=== PATIENT | female | born 1955 | race Caucasian/White ===

== ENCOUNTER → 2019-06-23 | Outpatient (CLI) | payer MEDICAID ==
[2019-06-23 08:56] VITALS: BP 161/96; PULSE 82; RESP 18; TEMP 98.2
--- NOTE | 2019-06-23 09:35 | P.GSHP ---
History of Present Illness H&P Date: 06/23/19 Chief Complaint: Left breast fullness under breast Josie is a 63-year-old white female who underwent a bilateral screening mammogram at the [facility] on . This was felt to be incomplete and additional evaluation via ultrasound of the left breast at the level of palpable abnormality was recommended. The mammogram itself did not show any suspicious spiculated a lobulated masses are clustered calcifications. There was no architectural distortion or other secondary signs of malignancy. The patient underwent a left breast ultrasound which was negative no solid or cystic lesion was noted. This was felt to be a BIRADS 1. The patient comes for evaluation secondary to the fullness in the left breast. The patient states that she noted a palpable mass in her left breast approximately March. She had been coughing and was feeling over her ribs when she noted the fullness at that point. She does not think there is been any change in size. It is not painful. She is not sure if this is asymmetric from the contralateral side. A chest x-ray was obtained on . This did not show any acute pulmonary process. She has not had any recent trauma or infection in the breast. She drinks at least a 20 ounces of soda per day. She is a former smoker she stopped in 2015. She is not exposed to secondhand smoke. She does not eat large quantities of chocolate. She does not take any hormone products. She is seen in consultation for Dr. Vinicio Lyn. Family History: father: of [place] at 50 paternal cousin: breast cancer in 40's, form this Hormonal History: menarche: 11 , 1 miscarriage; breast fed: yes, first born at 22 menopause: 49 BCP: 5 years hormones: none Surgical history: 1. Tonsillectomy 2. D&C 2 Medical history: anxiety GERD Social History: former smoker: stopped in 2015 alcohol: none drugs: none - Constitutional Constitutional: Reports sweats - EENT Eyes: denies blurred vision, denies pain Ears: deny: decreased hearing, tinnitus Ears, nose, mouth and throat: Denies headache, Denies sore throat - Breasts Breasts: bilateral: as per HPI - Cardiovascular Cardiovascular: Denies chest pain, Denies shortness of breath - Respiratory Comment: former smoker - Gastrointestinal Gastrointestinal: Denies abdominal pain, Denies diarrhea, Denies nausea, Denies vomiting - Genitourinary (Female) Genitourinary: Denies dysuria, Denies hematuria - Menstruation Menstruation: Reports postmenopausal - Musculoskeletal Musculoskeletal: Denies myalgias - Integumentary Integumentary: Denies pruritus, Denies rash - Neurological Neurological: Denies numbness, Denies weakness - Psychiatric Psychiatric: Reports anxiety, Denies depression - Endocrine Endocrine: Denies fatigue, Denies weight change - Hematologic/Lymphatic Hematologic/Lymphatic: Reports as per HPI - Allergic/Immunologic Allergic/Immunologic: Reports seasonal allergies Past Medical History History of Any Multi-Drug Resistant Organisms: None Reported Smoking Status: Former smoker Medications and Allergies Home Medications Medication Instructions Recorded Confirmed Type Diazepam 2 mg PO Q8HR PRN 06/23/19 06/23/19 History Famotidine [Pepcid] 20 mg PO DAILY 06/23/19 06/23/19 History Oxymetazoline HCl [Vicks Sinex] 1 spray EA NOSTRIL DAILY PRN 06/23/19 06/23/19 History Allergies Allergy/AdvReac Type Severity Reaction Status Date / Time No Known Allergies Allergy Unverified 06/23/19 08:59 Surgical - Exam Vital Signs Temp Pulse Resp BP Pulse Ox 98.2 F 82 18 161/96 98 06/23/19 08:49 06/23/19 08:49 06/23/19 08:49 06/23/19 08:49 06/23/19 08:49 BMI 31.6 - General well developed, well nourished, no distress - Eyes normal ocular movement - ENT no hearing loss, no congestion - Neck no masses, trachea midline - Respiratory normal expansion, normal respiratory effort, clear to auscultation - Cardiovascular Rhythm: regular Heart Sounds: normal: S1, S2 - Abdomen Abdomen: soft, non tender, bowel sounds, no guarding, no rigid, no rebound - Integumentary normal turgor - Neurologic no disoriented, no combative - Musculoskeletal normal gait - Psychiatric oriented to time, oriented to person, oriented to place, speech is normal, memory intact breast exam: BRA 42D inspection: no nipple inversion, grade 3 ptosis palpation: Breasts: Multiple positional exam no dominant masses or nodules of concern, fibrocystic changes Right axilla: No adenopathy of concern Left breast: Multiple positional exam fibrocystic changes, at the 7 o'clock position in the lower inner quadrant. There is an area of palpable fullness approximately 2.5 cm x 1.5 cm this appears soft and is most likely a lipoma Left axilla: No adenopathy of concern Results Mammogram and ultrasound results reviewed, chest x-ray results reviewed Assessment and Plan Assessment: Impression: 1. Left breast fullness 7 o'clock position lower inner quadrant 2. Radiographic findings benign 3. Anxiety Plan: 1. FNA of area of fullness in the left breast suspect this is most likely a lipoma 2. Patient must be covid-19 tested prior to the FNA this will be scheduled for the near future I had a discussion with Josie regarding the fullness in the left breast. I suspect this represents a lipoma. We have discussed doing an FNA of this area to confirm there is nothing atypical here. If this comes back consistent with a lipoma we will most likely watch the area and monitor it. If it does not grow and is not bothering her and we will follow this conservatively. DR. Lyn encounter 30 minutes > 50% of time spent in planning and counselling Time with Patient: Greater than 30
--- NOTE | 2019-06-23 11:18 | P.PCN ---
Date of Procedure: 06/23/19 Preoperative Diagnosis: 7:00 fullness in the left breast lower inner area/rule out lipoma Postoperative Diagnosis: Same Procedure(s) Performed: FNA left breast Surgeon: Abby Stark Pathology: other (Breast tissue) Condition: stable Disposition: same day Indications for Procedure: fullness left breast lower inner quadrant Operative Findings: Fibrofatty tissue Description of Procedure: The area of the left breast was prepped in a sterile fashion using alcohol. A 22-gauge needle on a 10 mL syringe was inserted into the area of concern. Negative suction was applied. The several passes were made in tissue was obtained. The tissue was prepped and sent for cytology. The patient tolerated the procedure in stable condition. She will follow next week for results. The patient states that as long as the cytology is not atypical realizing that I cannot tell her with 100% certainty what this is she would prefer to wait for 3 months then to have the area excised. This is most likely consistent with a lipoma if it increases in size if it becomes painful if she has any concerns she will call us sooner otherwise she will follow up in 3 months. If cytology is atypical we will recommend excision at this time.
== END | disposition home or self-care (01) ==
LOC: WWCWWP 08:41
PROVIDERS: ATTEND Surgery
DX: N63.20 Unspecified lump in the left breast, unspecified quadrant (principal); Z11.59 Encounter for screening for other viral diseases
CPT/HCPCS: 87635; 88173

== ENCOUNTER 2019-08-01 06:31 | Day surgery (SDC) | payer MEDICAID ==
[2019-07-26 14:40] VITALS: BMI 29.9
[~2019-08-01 06:31] MED LIST: HYDROmorphone 0.5 MG/0.5 ML SYRINGE IVP PRN; LACTATED RINGERS 1,000 ML IV SCH; fentaNYL (PF) 50 MCG/ML 2 ML AMP IV PRN
[2019-08-01] MEDS ORDERED: ONDANSETRON 4 MG/2 ML VIAL ONE (07:05)
[2019-08-01] MEDS ORDERED: HEPARIN SODIUM,PORCINE 5,000 UNIT/ML 1 ML VIAL ONE (07:05)
[2019-08-01] MEDS: HEPARIN SODIUM,PORCINE 5,000 UNIT/ML 1 ML VIAL SQ ONE ×2 (07:26→07:29)
[2019-08-01] MEDS: ONDANSETRON 4 MG/2 ML VIAL IVP ONE ×2 (07:26→07:29)
[2019-08-01] MEDS ORDERED: MIDAZOLAM 2 MG/2 ML VIAL ONE (09:01)
[2019-08-01] MEDS ORDERED: fentaNYL (PF) 50 MCG/ML 2 ML AMP ONE (09:01)
[2019-08-01] MEDS ORDERED: PROPOFOL 10 MG/ML 20 ML VIAL IV ONE (09:01)
[2019-08-01] MEDS ORDERED: SUCCINYLCHOLINE CHLORIDE 100 MG/5 ML SYR IV ONE (09:01)
[2019-08-01] MEDS ORDERED: LIDOCAINE 1% INJ 10MG/ML (20 ML MDV) ONE (09:01)
--- NOTE | 2019-08-01 09:44 | P.PCN ---
Date of Procedure: 08/01/19 Preoperative Diagnosis: Mass left breast Postoperative Diagnosis: Same Procedure(s) Performed: Excisional biopsy mass left breast Anesthesia: LUCIANO Surgeon: Abby Stark Estimated Blood Loss (ml): 3 IV fluids (ml): 400 Pathology: other (breast tissue/ ? lipoma) Condition: stable Disposition: same day Indications for Procedure: Palpable mass, FNA nondiagnostic Operative Findings: Mass left breast lower inner quadrant, at 7:00 Description of Procedure: Following induction of anesthesia the left breast was prepped and draped in a sterile fashion. An incision was made over the palpable abnormality. The area was excised. The area was approximately 3 cm x 2 cm. Dissection was down to the muscle of the chest wall. After assured that hemostasis was obtained the wound was well irrigated. The deep tissues were closed using 3-0 Vicryl suture. The skin was closed using a 4-0 Monocryl. The lesion appeared to be consistent with a lipoma. The lesion was painted for orientation and sent to pathology. The patient tolerated the procedure in stable condition. All instrument and sponge counts were correct at the end of the case.
[2019-08-01 09:54] VITALS: TEMP 97.1
[2019-08-01 10:50] VITALS: RESP 18
[2019-08-01 11:10] VITALS: BP 144/78; PULSE 67
== END 2019-08-01 11:20 | disposition home or self-care (01) ==
LOC: OR 06:31
PROVIDERS: ATTEND Surgery
DX: N60.12 Diffuse cystic mastopathy of left breast (principal); N60.22 Fibroadenosis of left breast; N64.1 Fat necrosis of breast; K21.9 Gastro-esophageal reflux disease without esophagitis; Z79.899 Other long term (current) drug therapy; Z98.890 Other specified postprocedural states
CPT/HCPCS: 88305; 19120; J2250; J1644; J0690; J2405; J2001; J3010; J0330; J2704; 88307

== ENCOUNTER → 2019-08-10 | Outpatient (CLI) | payer MEDICAID ==
[2019-08-10 09:48] VITALS: BP 172/92; PULSE 82; RESP 16; TEMP 98.2
--- NOTE | 2019-08-10 10:01 | P.PN ---
Subjective Progress Note Date: 08/10/19 Principal diagnosis: Fibrocystic breast disease Josie is a 64-year-old white female status post excisional biopsy left breast on 620 320. Pathology revealed fibrocystic fibrocystic spectrum lesion with focal sclerosing adenosis showing intraductal mineralization's and focal fat necrosis. She has had no complaints postprocedure. Objective - Vital Signs Vital signs: Vital Signs Temp 98.2 F 08/10/19 09:45 Pulse 82 08/10/19 09:45 Resp 16 08/10/19 09:45 BP 172/92 08/10/19 09:45 Pulse Ox 96 08/10/19 09:45 Intake & Output 08/09/19 08/10/19 08/10/19 18:59 06:59 18:59 Weight 81.647 kg - Exam BMI 30 - Constitutional General appearance: Present: average body habitus - EENT Eyes: Present: EOMI ENT: Present: hearing grossly normal - Neck Neck: Present: normal ROM - Respiratory Respiratory: bilateral: CTA - Cardiovascular Rhythm: regular Heart sounds: normal: S1, S2 - Integumentary Integumentary Comment(s): Incision left breast: Clean and dry no evidence of infection or hematoma - Musculoskeletal Musculoskeletal: Present: gait normal - Psychiatric Psychiatric: Present: A&O x's 3, appropriate affect, intact judgment & insight Assessment and Plan Assessment: Depression: 1. Patient status post open left breast excisional biopsy, pathology benign Plan: 1. Repeat left breast mammogram in 6 months with a physician exam at that time CC: Dr. Lyn
== END | disposition home or self-care (01) ==
LOC: WWCWWP 09:37
PROVIDERS: ATTEND Surgery
DX: Z53.9 Procedure and treatment not carried out, unspecified reason (principal)

== ENCOUNTER → 2020-01-31 | Outpatient (CLI) | payer MEDICAID ==
--- NOTE | 2020-01-31 11:30 | MM ---
Reason for exam: follow-up at short interval from prior study. Last mammogram was performed 10 months ago. History: Patient is postmenopausal. Benign excisional biopsy of the left breast, July 2019. Physical Findings: Nurse did not find any significant physical abnormalities on exam. MG 3D Diag Mammo W/Cad LT CC and MLO view(s) were taken of the left breast. Prior study comparison: April 04, 2019, mammogram. The breast tissue is heterogeneously dense. This may lower the sensitivity of mammography. There is no discrete abnormality including area of concern. These results were verbally communicated with the patient and result sheet given to the patient on 01/31/20. ASSESSMENT: Benign, BI-RAD 2 RECOMMENDATION: Routine screening mammogram of both breasts in 2 months. Back on schedule for March 2019.
== END | disposition home or self-care (01) ==
LOC: RADMAMWWP 10:45
PROVIDERS: ATTEND Surgery
DX: R92.8 Other abnormal and inconclusive findings on diagnostic imaging of breast (principal)
CPT/HCPCS: 77061; 77065

== ENCOUNTER → 2020-04-08 | Outpatient (CLI) | payer MEDICAID ==
--- NOTE | 2020-04-09 14:59 | MM ---
Reason for exam: screening (asymptomatic). Last mammogram was performed 2 months ago. History: Patient is postmenopausal. Benign excisional biopsy of the left breast, July 2019. Physical Findings: A clinical breast exam by your physician is recommended on an annual basis and results should be correlated with mammographic findings. MG 3D Screening Mammo W/Cad Bilateral CC and MLO view(s) were taken. Prior study comparison: January 31, 2020, left breast MG 3d diag mammo w/cad LT. April 04, 2019, mammogram. The breast tissue is heterogeneously dense. This may lower the sensitivity of mammography. No significant changes when compared with prior studies. ASSESSMENT: Benign, BI-RAD 2 RECOMMENDATION: Routine screening mammogram of both breasts in 1 year.
== END ==
LOC: RADMAMWWP 13:17
PROVIDERS: ATTEND Surgery
DX: Z12.31 Encounter for screening mammogram for malignant neoplasm of breast (principal); Z78.0 Asymptomatic menopausal state
CPT/HCPCS: 77063; 77067

== ENCOUNTER → 2020-04-12 | Outpatient (CLI) | payer MEDICAID ==
[2020-04-12 10:56] VITALS: BP 143/83; PULSE 105; RESP 18; TEMP 98.8
--- NOTE | 2020-04-12 11:24 | P.PN ---
Subjective Progress Note Date: 04/12/20 Principal diagnosis: fibrocystic bresat disease Josie is a 65 year old white female seen for fibrocystic breast disease surveillance. She had a bilateral mammogram and 3121 which was benign BIRADS 2. She has not noted any lumps masses or nodules in her breast. She is not complaining of any nipple discharge or skin changes. She underwent surgical resection of the lesion of her left breast on 620 320 which was fibrocystic spectrum lesion with focal fat necrosis. Caffeine: Negative Nicotine: Negative Chocolate: twice a week Family History: father: of [place] at 50 paternal cousin: breast cancer in 40's, from this Hormonal History: menarche: 11 , 1 miscarriage; breast fed: yes, first born at 22 menopause: 49 BCP: 5 years hormones: none Surgical history: 1. Tonsillectomy 2. D&C 2 3. left breast biopsy 4. colonoscopy return in 5 years Medical history: anxiety GERD HTN Social History: former smoker: stopped in 2015 alcohol: none drugs: none - Constitutional Constitutional: Reports sweats - EENT Eyes: denies blurred vision, denies pain Ears: deny: decreased hearing, tinnitus Ears, nose, mouth and throat: Denies headache, Denies sore throat - Breasts Breasts: bilateral: as per HPI - Cardiovascular Cardiovascular: Denies chest pain, Denies shortness of breath, HTN - Respiratory Comment: former smoker - Gastrointestinal Gastrointestinal: Denies abdominal pain, Denies diarrhea, Denies nausea, Denies vomiting - Genitourinary (Female) Genitourinary: Denies dysuria, Denies hematuria - Menstruation Menstruation: Reports postmenopausal - Musculoskeletal Musculoskeletal: Denies myalgias - Integumentary Integumentary: Denies pruritus, Denies rash - Neurological Neurological: Denies numbness, Denies weakness - Psychiatric Psychiatric: Reports anxiety, Denies depression - Endocrine Endocrine: Denies fatigue, Denies weight change - Hematologic/Lymphatic Hematologic/Lymphatic: Reports as per HPI - Allergic/Immunologic Allergic/Immunologic: Reports seasonal allergies Objective - Vital Signs Vital signs: Vital Signs Temp 98.8 F 04/12/20 10:54 Pulse 105 H 04/12/20 10:54 Resp 18 04/12/20 10:54 BP 143/83 04/12/20 10:54 Pulse Ox 98 04/12/20 10:54 Intake & Output 04/11/20 04/12/20 04/12/20 18:59 06:59 18:59 Weight 90.718 kg - Exam BMI 33.3 - Constitutional General appearance: Present: cooperative - EENT Eyes: Present: EOMI ENT: Present: hearing grossly normal - Neck Neck: Present: normal ROM - Respiratory Respiratory: bilateral: CTA - Cardiovascular Rhythm: regular Heart sounds: normal: S1, S2 - Gastrointestinal General gastrointestinal: Present: soft - Integumentary Integumentary: Present: normal turgor - Musculoskeletal Musculoskeletal: Present: gait normal - Psychiatric Psychiatric: Present: A&O x's 3, appropriate affect, intact judgment & insight - Additional findings Additional findings: Breast: BRA: XL sports bra inspection: grade 3 ptosis palpation: Right breast: Multiple positional exam fibrocystic changes, no dominant masses or nodules of concern Axilla: No adenopathy of concern Left breast: Multiple positional exam fibrocystic changes, no dominant masses or nodules of concern Left axilla: No adenopathy of concern Assessment and Plan Assessment: Impression: 1. Fibrocystic breast changes 2. No recurrence of mass which was resected in the left breast 3. Hypertension 4. GERD 5. anxiety Plan: 1. We have discussed lifestyle modification i.e. that chocolate may exacerbate fibrocystic breast changes she is going to consider this. 2. Repeat bilateral mammogram in 1 year with physician exam at that time Cc: Encounter 20 minutes, time spent in physical exam, reviewing medical records, and counselling.
== END ==
LOC: WWCWWP 10:35
PROVIDERS: ATTEND Surgery
DX: N60.12 Diffuse cystic mastopathy of left breast (principal); I10 Essential (primary) hypertension; K21.9 Gastro-esophageal reflux disease without esophagitis; F41.9 Anxiety disorder, unspecified

== ENCOUNTER → 2021-04-10 | Outpatient (CLI) | payer MEDICARE ==
--- NOTE | 2021-04-11 13:58 | MM ---
Reason for exam: screening (asymptomatic). Last mammogram was performed 1 year ago. History: Patient is postmenopausal. Benign excisional biopsy of the left breast, July 2019. Physical Findings: A clinical breast exam by your physician is recommended on an annual basis and results should be correlated with mammographic findings. MG 3D Screening Mammo W/Cad Bilateral CC and MLO view(s) were taken. Prior study comparison: April 08, 2020, bilateral MG 3d screening mammo w/cad. January 31, 2020, left breast MG 3d diag mammo w/cad LT. The breast tissue is heterogeneously dense. This may lower the sensitivity of mammography. There is no discrete abnormality. No significant changes when compared with prior studies. ASSESSMENT: Negative, BI-RAD 1 RECOMMENDATION: Routine screening mammogram of both breasts in 1 year.
== END | disposition home or self-care (01) ==
LOC: RADMAMWWP 13:48
PROVIDERS: ATTEND Surgery
DX: Z12.31 Encounter for screening mammogram for malignant neoplasm of breast (principal); Z78.0 Asymptomatic menopausal state
CPT/HCPCS: 77063; 77067

== ENCOUNTER → 2021-07-24 | Outpatient (CLI) | payer MEDICAID ==
[2021-07-24 16:45] VITALS: BP 147/82; PULSE 90; RESP 18
--- NOTE | 2021-07-24 16:49 | P.PN ---
Subjective Progress Note Date: 07/24/21 Principal diagnosis: fibrocystic breast changes fibrocystic bresat disease Josie is a 66 year old white female seen for fibrocystic breast disease surveillance. She had a bilateral mammogram and 04-10-21 which was benign BIRADS 1. She has not noted any lumps masses or nodules in her breast. She is not complaining of any nipple discharge or skin changes. [place] [address] which was fibrocystic spectrum lesion with focal fat necrosis. Caffeine: Negative Nicotine: Negative Chocolate: twice a week Family History: father: of [place] at 50 paternal cousin: breast cancer in 40's, from this Hormonal History: menarche: 11 , 1 miscarriage; breast fed: yes, first born at 22 menopause: 49 BCP: 5 years hormones: none Surgical history: 1. Tonsillectomy 2. D&C 2 3. left breast biopsy 4. colonoscopy return in 5 years Medical history: anxiety GERD HTN Social History: former smoker: stopped in 2015 alcohol: none drugs: none - Constitutional Constitutional: Reports sweats - EENT Eyes: denies blurred vision, denies pain Ears: deny: decreased hearing, tinnitus Ears, nose, mouth and throat: Denies headache, Denies sore throat - Breasts Breasts: bilateral: as per HPI - Cardiovascular Cardiovascular: Denies chest pain, Denies shortness of breath, HTN - Respiratory Comment: former smoker - Gastrointestinal Gastrointestinal: Denies abdominal pain, Denies diarrhea, Denies nausea, Denies vomiting - Genitourinary (Female) Genitourinary: Denies dysuria, Denies hematuria - Menstruation Menstruation: Reports postmenopausal - Musculoskeletal Musculoskeletal: Denies myalgias - Integumentary Integumentary: Denies pruritus, Denies rash - Neurological Neurological: Denies numbness, Denies weakness - Psychiatric Psychiatric: Reports anxiety, Denies depression - Endocrine Endocrine: Denies fatigue, Denies weight change - Hematologic/Lymphatic Hematologic/Lymphatic: Reports as per HPI - Allergic/Immunologic Allergic/Immunologic: Reports seasonal allergies Objective - Vital Signs Vital signs: Intake & Output 07/23/21 07/24/21 07/24/21 18:59 06:59 18:59 Weight 83.915 kg - Constitutional General appearance: Present: cooperative - EENT Eyes: Present: EOMI ENT: Present: hearing grossly normal - Neck Neck: Present: normal ROM - Respiratory Respiratory: bilateral: CTA - Cardiovascular Heart sounds: normal: S1, S2 - Integumentary Integumentary: Present: normal turgor - Musculoskeletal Musculoskeletal: Present: gait normal - Psychiatric Psychiatric: Present: A&O x's 3, appropriate affect, intact judgment & insight - Additional findings Additional findings: Breast Exam: Bra: sports bra XL Inspection: bilateral grade 3 ptosis, bilateral fungal infection under each breast Palpation: Breasts: Multiple positional exam fibrocystic changes no dominant masses or nodules of concern Right axilla: No adenopathy of concern Left breast: Multi-positional exam fibrocystic changes no dominant masses or notches of concern Left axilla: No adenopathy of concern Assessment and Plan Assessment: Impression: Fibrocystic breast changes Fungal infection under both breasts Recent bilateral mammogram benign BIRADS 1 Plan: Bilateral mammogram 1 year Nystatin as needed under breast Follow-up in 1 year or sooner if needed CC: Dr. Lyn
== END ==
LOC: WWCWWP 16:19
PROVIDERS: ATTEND Surgery
DX: N60.11 Diffuse cystic mastopathy of right breast (principal); N60.12 Diffuse cystic mastopathy of left breast; B36.8 Other specified superficial mycoses; F41.9 Anxiety disorder, unspecified; I10 Essential (primary) hypertension; Z87.891 Personal history of nicotine dependence

== ENCOUNTER → 2022-06-08 | Outpatient (CLI) | payer MEDICARE ==
--- NOTE | 2022-06-09 11:40 | MM ---
Reason for Exam: Screening (asymptomatic). Last mammogram was performed 1 year(s) and 2 month(s) ago. Patient History: Menarche at age 12. First Full-Term at age 22. Postmenopausal. 07/2019, Benign Excisional Biopsy on the left side. Risk Values: Bettie 5 year model risk: 1.9%. NCI Lifetime model risk: 7.0%. Prior Study Comparison: 01/31/2020 Left Diagnostic Mammogram, [facility]. 04/08/2020 Bilateral Screening Mammogram, [facility]. 04/10/2021 Bilateral Screening Mammogram, [facility]. Tissue Density: The breast tissue is almost entirely fat. Findings: Analyzed By CAD. There is no suspicious group of microcalcifications or new suspicious mass in either breast. Overall Assessment: Negative, BI-RAD 1 Management: Screening Mammogram of both breasts in [address] [facility] will attempt to contact patient to return for supplemental views and ultrasound if indicated. Patient should continue monthly self-breast exams. A clinical breast exam by your physician is recommended on an annual basis. This exam should not preclude additional follow-up of suspicious palpable abnormalities. Note on Bettie scores and lifetime risk: 1. A Bettie score greater than 3% is considered moderate risk. If this is the case, consider specialist referral to assess eligibility for a risk reducing agent. 2. If overall lifetime risk for the development of breast cancer is 20% or higher, the patient may qualify for future screening with alternating mammogram and breast MRI. Electronically signed and approved by: Dallas Fernandez DO
== END | disposition home or self-care (01) ==
LOC: RADMAMWWP 09:28
PROVIDERS: ATTEND Surgery
DX: Z12.31 Encounter for screening mammogram for malignant neoplasm of breast (principal); Z78.0 Asymptomatic menopausal state
CPT/HCPCS: 77063; 77067

== ENCOUNTER → 2023-06-10 | Outpatient (CLI) | payer MEDICARE ==
--- NOTE | 2023-06-11 10:47 | MM ---
Reason for Exam: Screening (asymptomatic). Last screening mammogram was performed 12 month(s) ago. Patient History: Menarche at age 12. First Full-Term at age 22. Postmenopausal. 07/2019, Benign Excisional Biopsy on the left side. Risk Values: Bettie 5 year model risk: 2.0%. NCI Lifetime model risk: 6.7%. Prior Study Comparison: 04/08/2020 Bilateral Screening Mammogram, [facility]. 04/10/2021 Bilateral Screening Mammogram, [facility]. 06/08/2022 Bilateral MG 3D screening mammo w/cad, [facility]. Tissue Density: There are scattered areas of fibroglandular density. Findings: Analyzed By CAD. Right breast: There is no suspicious group of microcalcifications or new suspicious mass. Left breast: There is no suspicious group of microcalcifications or new suspicious mass. Overall Assessment: Negative, BI-RAD 1 Management: Screening Mammogram of both breasts in [address] [facility] will attempt to contact patient to return for supplemental views and ultrasound if indicated. Patient should continue monthly self-breast exams. A clinical breast exam by your physician is recommended on an annual basis. This exam should not preclude additional follow-up of suspicious palpable abnormalities. Note on Bettie scores and lifetime risk: 1. A Bettie score greater than 3% is considered moderate risk. If this is the case, consider specialist referral to assess eligibility for a risk reducing agent. 2. If overall lifetime risk for the development of breast cancer is 20% or higher, the patient may qualify for future screening with alternating mammogram and breast MRI. Electronically signed and approved by: Dallas Fernandez DO
== END | disposition home or self-care (01) ==
LOC: RADMAMWWP 09:55
PROVIDERS: ATTEND Surgery
DX: Z12.31 Encounter for screening mammogram for malignant neoplasm of breast (principal); Z78.0 Asymptomatic menopausal state
CPT/HCPCS: 77063; 77067

== ENCOUNTER → 2024-08-31 | Outpatient (CLI) | payer MEDICARE ==
--- NOTE | 2024-08-31 11:15 | MM ---
Reason for Exam: Screening (asymptomatic). Last mammogram was performed 1 year(s) and 2 month(s) ago. Patient History: Menarche at age 12. First Full-Term at age 22. Postmenopausal. 07/2019, Benign Excisional Biopsy on the left side. Risk Values: Bettie 5 year model risk: 2.0%. NCI Lifetime model risk: 6.4%. Prior Study Comparison: 04/10/2021 Bilateral Screening Mammogram, [facility]. 06/08/2022 Bilateral MG 3D screening mammo w/cad, [facility]. 06/10/2023 Bilateral MG 3D screening mammo w/cad, [facility]. Tissue Density: There are scattered areas of fibroglandular density. Findings: Analyzed By CAD. Right breast: There is no suspicious group of microcalcifications or new suspicious mass. Left breast: There is no suspicious group of microcalcifications or new suspicious mass. Overall Assessment: Negative, BI-RAD 1 Management: Screening Mammogram of both breasts in [address] [facility] will attempt to contact patient to return for supplemental views and ultrasound if indicated. Patient should continue monthly self-breast exams. A clinical breast exam by your physician is recommended on an annual basis. This exam should not preclude additional follow-up of suspicious palpable abnormalities. Note on Bettie scores and lifetime risk: 1. A Bettie score greater than 3% is considered moderate risk. If this is the case, consider specialist referral to assess eligibility for a risk reducing agent. 2. If overall lifetime risk for the development of breast cancer is 20% or higher, the patient may qualify for future screening with alternating mammogram and breast MRI. [facility], , 08/31/2024 11:12 AM. Electronically signed and approved by: Dallas Fernandez DO
== END | disposition home or self-care (01) ==
LOC: RADMAMWWP 10:42
PROVIDERS: ATTEND Internal Medicine
DX: Z12.31 Encounter for screening mammogram for malignant neoplasm of breast (principal); Z29.9 Encounter for prophylactic measures, unspecified; R92.323 Mammographic fibroglandular density, bilateral breasts; Z78.0 Asymptomatic menopausal state
CPT/HCPCS: 77063; 77067